=== PATIENT | female | born 1995 | race Two or more races ===

== ENCOUNTER 2018-11-06 15:18 | Emergency (ER) | payer OTHER ==
[2018-11-06 15:23] VITALS: BP 130/78; PULSE 97; TEMP 100.9; BMI 35.2
[2018-11-06] MEDS ORDERED: ACETAMINOPHEN 325 MG TABLET (FP) PO ONE (15:29)
[2018-11-06] MEDS ORDERED: ACETAMINOPHEN 325 MG TABLET (FP) ONE (15:32)
--- NOTE | 2018-11-06 15:37 | PDOC ---
History of Present Illness - General Chief Complaint: Sore Throat Stated Complaint: CHRONIC HEADACHE/ SORE THROAT Time Seen by Provider: 11/06/18 15:26 History Source: Patient Exam Limitations: No Limitations (sorethroat since today) - History of Present Illness Associated Symptoms: denies: cough, fever/chills Past History - Travel Traveled outside of the country in the last 30 days: No Close contact w/someone who was outside of country & ill: No - Past Medical History Allergies/Adverse Reactions: Allergies Allergy/AdvReac Type Severity Reaction Status Date / Time No Known Allergies Allergy Verified 11/06/18 15:22 Home Medications: Ambulatory Orders Ibuprofen 600 mg PO ACDIN 7 Days #21 tablet 11/06/18 COPD: No - Suicide/Smoking/Psychosocial Hx Smoking History: Never smoked Review of Systems - Review of Systems Is the patient limited Bulgarian proficient: No Constitutional: No: Chills, Fever HEENTM: Yes: Throat Pain. 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 negative: Tonsillar Exudate Respiratory/Chest: positive: Lungs Clear, Normal Breath Sounds Cardiovascular: positive: Regular Rhythm, Regular Rate, S1, S2 Musculoskeletal: positive: Normal Inspection Extremity: positive: Normal Capillary Refill Integumentary: positive: Normal Color Neurologic: positive: verification manager II-XII NML intact, Fully Oriented, Alert Moderate Sedation - Procedure Monitoring Vital Signs: Procedure Monitoring Vital Signs Temperature 100.9 F H 11/06/18 15:19 Pulse Rate 97 H 11/06/18 15:19 Respiratory Rate 18 11/06/18 15:19 Blood Pressure 130/78 11/06/18 15:19 O2 Sat by Pulse Oximetry (%) 97 11/06/18 15:19 ED Treatment Course - Medications Given in the ED: ED Medications Discontinued Medications Generic Name Dose Route Start Last Admin Trade Name Caitie PRN Reason Stop Dose Admin Acetaminophen 975 mg 11/06/18 15:29 11/06/18 15:33 Tylenol - PO 11/06/18 15:30 975 mg ONCE ONE Administration Medical Decision Making - Medical Decision Making 11/06/18 15:36 23 years old patient female with sore throat since this morning. Patient denies any fever chills trouble swallowing any drooling no cough examination with erythema in the oropharynx patient is noted to have enlarged tonsils patient presents patient reports her tonsils are usually very. rapid strep pending 11/06/18 15:55 rapid strep negative water gargle Motrin and Tylenol for pain throat culture will called if positive. *DC/Admit/Observation/Transfer Diagnosis at time of Disposition: Sorethroat - Discharge Dispostion Disposition: HOME Condition at time of disposition: Stable Decision to Admit order: No - Prescriptions Prescriptions: Ibuprofen 600 mg PO ACDIN 7 Days #21 tablet - Referrals Referrals: Khloe Saunders MD [Primary Care Provider] - - Patient Instructions Printed Discharge Instructions: Sore Throat Additional Instructions: Your strep test was negative today please gargle with salt warm water take Motrin as directed for pain. Return to the emergency room if worsening symptoms occurs - Post Discharge Activity
== END 2018-11-06 16:06 | disposition home or self-care (01) ==
LOC: JERFT 15:18
DX: J02.9 Acute pharyngitis, unspecified (principal)
CPT/HCPCS: 87070; 87880; 99281-25